=== PATIENT | male | born 1980 | race Caucasian/White ===

== ENCOUNTER 2022-06-04 09:52 | Emergency (ER) | payer SELFPAY ==
[2022-06-04 11:01] LABS: Hematocrit 46.5 % (39.6-49.0); Lymphocytes % 30.5 % (15.3-44.8); MPV 9.7 fL (7.6-11.3); RBC Red Blood Cell Count 5.34 M/uL (4.33-5.43)
[2022-06-04 11:18] LABS: Troponin High Sensitivity 7.1 pg/mL (<58.9)
--- NOTE | 2022-06-04 11:22 | RAD REPORT ---
EXAM DESCRIPTION: RAD - Chest Single View - 06/04/2022 11:15 am CLINICAL HISTORY: CHEST PAIN COMPARISON: No comparisons FINDINGS: Lines: None. Lungs: No evidence of edema or pneumonia. Pleural: No significant pleural effusions or pneumothorax. Cardiac: The heart size is within normal limits. Mediastinum: Within normal limits. Bones: No acute fractures. Other: None IMPRESSION: No acute cardiopulmonary disease.
[2022-06-04 11:26] LABS: Potassium 3.7 mmol/L (3.5-5.1)
--- NOTE | 2022-06-04 12:11 | RAD REPORT ---
EXAM DESCRIPTION: CT - Chest For Pe Angio - 06/04/2022 11:56 am CLINICAL HISTORY: left sided chest pain COMPARISON: Abdomen Pelvis W Contrast dated 06/04/2022 TECHNIQUE: Dynamically enhanced axial 3 mm thick images of the chest were obtained during administra tion of <100> mL Isovue 370 IV contrast. Coronal and oblique reconstruction images were generated and reviewed. Exam utilizes a protocol for optimal evaluation of pulmonary arterial tree. Maximum intensity projections 3D imaging was utilized All CT scans are performed using dose optimization technique as appropriate and may include automated exposure control or mA/KV adjustment according to patient size. FINDINGS: Chest Wall: No suspicious thyroid nodules or pathologic lymphadenopathy. Lungs: No acute abnormality. Mild paraseptal emphysema. Pleura: Trace left pleural effusion. Mediastinum/liza: No pathologic lymphadenopathy. Circumferential thickened distal esophagus likely re flecting esophagitis. Pulmonary arteries/Aorta: No filling defect identified. No aortic aneurysm. Heart: No significant pericardial effusion. Normal heart size. Upper abdomen: No acute abnormality. Bones: No acute abnormality. IMPRESSION: Negative for pulmonary embolism. Small nonspecific left pleural effusion. Distal esophag eal wall thickening suggesting esophagitis. Endoscopy could better evaluate if clinically indicated.
--- NOTE | 2022-06-04 12:12 | RAD REPORT ---
EXAM DESCRIPTION: CTAbdomen Pelvis W Contrast - 06/04/2022 12:00 pm CLINICAL HISTORY: left sided abdominal pain COMPARISON: No comparisons TECHNIQUE: CT of the abdomen and pelvis was performed. All CT scans are performed using dose optimization technique as appropriate and may include automated exposure control or mA/KV adjustment according to patient size. FINDINGS: Lower chest: Trace left pleural effusion. Circumferential thickened distal esophagus which may reflect reflux esophagitis. Liver: No acute abnormality or suspicious lesions. Biliary: No biliary ductal dilatation. Stomach: No significant focal abnormality. Duodenum: No significant focal abnormality. Pancreas: No significant abnormality. Spleen: No significant abnormality. Adrenal: No suspicious lesions. Kidney/ureter: No hydronephrosis. No renal calculi. Retroperitoneum: No retroperitoneal adenopathy. Vascular: No aneurysm. Atherosclerosis. Bowel: No significant focal abnormality. Normal appendix. Peritoneum: No ascites or free air. Bladder: Grossly unremarkable. Reproductive: No adnexal masses. Bones: No acute fracture. Other: n/a IMPRESSION: No acute intra-abdominal or pelvic finding. Trace left pleural effusion. Normal appendix .
--- NOTE | 2022-06-04 13:01 | EDPHYS ---
Physician Documentation [facility] Name: Hernan Colon Age: 41 yrs Sex: Male : 1980 Arrival Date: 06/04/2022 Time: 09:56 Bed 13 Private MD: EM Physician Nura Ocampo HPI: 06/04 10:15 This 41 yrs old Male presents to ER via Ambulatory with complaints of Shoulder Pain, jmm Breathing Difficulty. 10:15 This is a 41-year-old male with history of hypertension that presents emerged part with [facility] complaints of left-sided chest and flank pain pain approximately 4 days ago some shortness of breath. Denies fever, cough. Also complains of some swelling in his right lower leg that he attributes to an ankle sprain. Patient has mainly medial calf pain. Patient takes ibuprofen for relief.. Historical: - Allergies: 10:09 Amoxicillin; ld1 - PMHx: 10:09 Hypertensive disorder; ld1 - PSHx: 10:09 None; ld1 - Immunization history:: Adult Immunizations up to date, Client reports receiving the 2nd dose of the Covid vaccine. - Social history:: Smoking status: Patient reports the use of cigarette tobacco products, smokes one-half pack cigarettes per day, Patient/guardian denies using alcohol. ROS: 10:15 Constitutional: Negative for fever, chills, and weight loss. jmm 10:15 Cardiovascular: Positive for chest pain. 10:15 MS/extremity: Positive for pain, swelling. 10:15 All other systems are negative. Exam: 10:15 Constitutional: This is a well developed, well nourished patient who is awake, alert, jmm and in no acute distress. Head/Face: atraumatic. Eyes: EOMI, no conjunctival erythema appreciated ENT: Moist Mucus Membranes Neck: Trachea midline, Supple Chest/axilla: Normal chest wall appearance and motion. 10:15 Abdomen/GI: Non distended Back: Normal ROM Skin: General appearance color normal 10:15 Cardiovascular: Rate: normal, Rhythm: regular. 10:15 Respiratory: the patient does not display signs of respiratory distress, Respirations: normal, Breath sounds: are clear throughout. 10:15 Musculoskeletal/extremity: Mild swelling noted to the right gastroc, compartments are soft, full dorsalis pedis pulse, neurovascular intact. 10:15 Skin: Appearance: Color: normal in color. 10:15 Neuro: Orientation: is normal, Mentation: is normal, Memory: is normal. 10:15 Psych: Behavior/mood is pleasant, cooperative. Vital Signs: 10:09 BP 209 / 129; Pulse 84; Resp 18; Temp 98.5(O); Pulse Ox 97% on R/A; Weight 86.18 kg; ld1 Height 5 ft. 10 in. (177.80 cm); Pain 6/10; 10:30 BP 193 / 123; Pulse 77; Pulse Ox 96% ; ko1 13:15 BP 165 / 102; Pulse 75; Resp 20; Pulse Ox 98% ; kb3 10:09 Body Mass Index 27.26 (86.18 kg, 177.80 cm) ld1 MDM: 10:15 Patient medically screened. [facility] 12:58 Data reviewed: vital signs, nurses notes. Counseling: I had a detailed discussion with [facility] the patient and/or guardian regarding:. 13:00 Data reviewed: vital signs, nurses notes. Counseling: I had a detailed discussion with [facility] the patient and/or guardian regarding: the historical points, exam findings, and any diagnostic results supporting the discharge/admit diagnosis, lab results, radiology results, the need for outpatient follow up, to return to the emergency department if symptoms worsen or persist or if there are any questions or concerns that arise at home. 15:13 Refusal of service: The patient/guardian displays adequate decision making capability [facility] and despite a detailed discussion of alternatives, benefits, risks, and consequences refuses: Ultrasound of the right leg. 06/04 10:20 Order name: Basic Metabolic Panel; Complete Time: 11:28 [facility] 06/04 10:20 Order name: CBC with Diff; Complete Time: 11:07 [facility] 06/04 10:20 Order name: Troponin HS; Complete Time: 11:28 [facility] 06/04 10:20 Order name: XRAY Chest (1 view); Complete Time: 11:22 [facility] 06/04 10:20 Order name: D-Dimer; Complete Time: 11:22 [facility] 06/04 10:20 Order name: Lipase; Complete Time: 11:28 [facility] 06/04 10:20 Order name: EKG; Complete Time: 10:21 [facility] 06/04 10:20 Order name: Cardiac monitoring; Complete Time: 10:52 [facility] 06/04 10:20 Order name: EKG - Nurse/Tech; Complete Time: : [facility] 06/04 10:20 Order name: IV Saline Lock; Complete Time: [facility] 06/04 10:20 Order name: Labs collected and sent; Complete Time: : [facility] 06/04 10:20 Order name: O2 Per Protocol; Complete Time: : [facility] 06/04 11:29 Order name: CT Chest For PE Angio; Complete Time: 12:12 [facility] 06/04 11:29 Order name: CT Abd/Pelvis - IV Contrast Only; Complete Time: 12:13 [facility] 06/04 10:20 Order name: O2 Sat Monitoring; Complete Time: : [facility] Administered Medications: No medications were administered Disposition Summary: 06/04/22 13:01 Discharge Ordered Location: Home [facility] Condition: Stable [facility] Diagnosis - Pleural effusion, not elsewhere classified jm - Esophagitis, unspecified [facility] Followup: [facility] - With: Sampson Guerrero MD - When: 2 - 3 days - Reason: Recheck today's complaints, Continuance of care, Re-evaluation by your physician Followup: [facility] - With: Braxton Gallagher MD - When: 2 - 3 days - Reason: Recheck today's complaints, Continuance of care, Re-evaluation by your physician Discharge Instructions: - Discharge Summary Sheet [facility] - Esophagitis [facility] - Pleural Effusion [facility] Forms: - Medication Reconciliation Form [facility] - Thank You Letter [facility] - Antibiotic Education [facility] - Prescription Opioid Use [facility] Prescriptions: - Pepcid 20 mg Oral Tablet - take 1 tablet by ORAL route every 12 hours for 10 days; 20 tablet; Refills: 0, [facility] Product Selection Permitted - Carafate 1 gram Oral Tablet - take 1 tablet by ORAL route 4 times per day take on an empty stomach, beginning jm on waking and last dose at bedtime; 100 tablet; Refills: 0, Product Selection Permitted Signatures: Dispatcher [employer] Karl Leone PA PA jmm Dibbern, Lauren, RN RN ld1 Corrections: (The following items were deleted from the chart) 10:09 10:09 Allergies: Amoxapine; ld1 ld1
--- NOTE | 2022-06-04 13:01 | ER ---
Nurse's Notes [facility] Name: Hernan Colon Age: 41 yrs Sex: Male : 1980 Arrival Date: 06/04/2022 Time: 09:56 Bed 13 Private MD: Diagnosis: Pleural effusion, not elsewhere classified;Esophagitis, unspecified Presentation: 06/04 10:11 Chief complaint: Patient states: LUQ pain/rib pain X 4 days. Coronavirus screen: At ld1 this time, the client does not indicate any symptoms associated with coronavirus-19. Ebola Screen: No symptoms or risks identified at this time. Initial Sepsis Screen: Does the patient meet any 2 criteria? No. Patient's initial sepsis screen is negative. Does the patient have a suspected source of infection? No. Patient's initial sepsis screen is negative. Risk Assessment: Do you want to hurt yourself or someone else? Patient reports no desire to harm self or others. Onset of symptoms was June 04, 2022. 10:11 Method Of Arrival: Ambulatory ld1 10:11 Acuity: SHARAD 3 ld1 Triage Assessment: 10:09 General: Appears in no apparent distress. comfortable, Behavior is calm, cooperative, ld1 appropriate for age. Pain: Complains of pain in left upper quadrant Pain does not radiate. Pain currently is 8 out of 10 on a pain scale. Quality of pain is described as aching, throbbing. EENT: No signs and/or symptoms were reported regarding the EENT system. Neuro: Level of Consciousness is awake, alert, obeys commands, Oriented to person, place, time, situation. Cardiovascular: Capillary refill < 3 seconds Patient's skin is warm and dry. Respiratory: Reports Airway is patent Respiratory effort is even, unlabored, Onset: The symptoms/episode began/occurred suddenly, the patient has mild shortness of breath. GI: Abdomen is flat, non-distended. : No signs and/or symptoms were reported regarding the genitourinary system. Derm: No signs and/or symptoms reported regarding the dermatologic system. Musculoskeletal: No signs and/or symptoms reported regarding the musculoskeletal system. Historical: - Allergies: 10:09 Amoxicillin; ld1 - PMHx: 10:09 Hypertensive disorder; ld1 - PSHx: 10:09 None; ld1 - Immunization history:: Adult Immunizations up to date, Client reports receiving the 2nd dose of the Covid vaccine. - Social history:: Smoking status: Patient reports the use of cigarette tobacco products, smokes one-half pack cigarettes per day, Patient/guardian denies using alcohol. Screenin:30 Abuse screen: Denies threats or abuse. Denies injuries from another. Nutritional ko1 screening: No deficits noted. Tuberculosis screening: No symptoms or risk factors identified. Fall Risk None identified. Assessment: 10:30 General: Appears in no apparent distress. comfortable, Behavior is calm, cooperative, ko1 appropriate for age. Pain: Complains of pain in abdomen and left upper quadrant. Neuro: No deficits noted. Cardiovascular: Rhythm is sinus rhythm. Respiratory: Airway is patent Trachea midline Respiratory effort is even, unlabored, Respiratory pattern is regular, Breath sounds are clear bilaterally. in right upper lobe, left upper lobe, right middle lobe, left lower lobe, right lower lobe, left posterior upper lobe, right posterior upper lobe, left posterior lower lobe, right posterior middle lobe and right posterior lower lobe. GI: No deficits noted. : No deficits noted. EENT: No deficits noted. Derm: No deficits noted. Musculoskeletal: No deficits noted. Vital Signs: 10:09 BP 209 / 129; Pulse 84; Resp 18; Temp 98.5(O); Pulse Ox 97% on R/A; Weight 86.18 kg; ld1 Height 5 ft. 10 in. (177.80 cm); Pain 6/10; 10:30 BP 193 / 123; Pulse 77; Pulse Ox 96% ; ko1 13:15 BP 165 / 102; Pulse 75; Resp 20; Pulse Ox 98% ; kb3 10:09 Body Mass Index 27.26 (86.18 kg, 177.80 cm) ld1 ED Course: 09:56 Patient arrived in ED. rg4 09:56 Karl Ayers PA is PHCP. jm 09:56 Nura Ocampo MD is Attending Physician. jmm 10:09 Arm band placed on right wrist. ld1 10:11 Triage completed. ld1 10:17 Guerline Gray, SHARYN is Primary Nurse. ko1 10:30 Patient has correct armband on for positive identification. Bed in low position. Call ko1 light in reach. Side rails up X 1. Client placed on continuous cardiac and pulse oximetry monitoring. NIBP monitoring applied. quality assurance monitor body on. 10:30 No provider procedures requiring assistance completed. Inserted saline lock: 20 gauge ko1 in right antecubital area, using aseptic technique. Blood collected. 10:52 Lipase Sent. ko1 10:52 D-Dimer Sent. ko1 10:52 Basic Metabolic Panel Sent. ko1 10:52 CBC with Diff Sent. ko1 10:52 Troponin HS Sent. ko1 11:17 XRAY Chest (1 view) In Process Unspecified. EDMS 11:58 CT Chest For PE Angio In Process Unspecified. EDMS 12:02 CT Abd/Pelvis - IV Contrast Only In Process Unspecified. EDMS 13:00 Sampson Guerrero MD is Referral Physician. jm 13:01 Braxton Gallagher MD is Referral Physician. m 13:19 IV discontinued, intact, bleeding controlled, No redness/swelling at site. kb3 Administered Medications: No medications were administered Medication: 10:30 VIS not applicable for this client. ko1 Outcome: 13:01 Discharge ordered by MD. [facility] 13:19 Discharged to home ambulatory. kb3 13:19 Condition: stable 13:19 Discharge instructions given to patient, Instructed on discharge instructions, follow up and referral plans. medication usage, Demonstrated understanding of instructions, follow-up care, medications, Prescriptions given X 2. 13:20 Patient left the ED. kb3 Signatures: Dispatcher [employer] EDMS Karl Ayers PA PA jmm Garcia, Rubi rg4 Akua Pearson RN RN ld1 Yanet Flower, RN RN kb3 Guerline Gray, SHARYN RN ko1 Corrections: (The following items were deleted from the chart) 10:09 10:09 Allergies: Amoxapine; ld1 ld1
[2022-06-04 13:27] VITALS: TEMP 98.5
[2022-06-04 13:30] VITALS: BP 165/102; O2SAT 98
== END 2022-06-04 13:20 | disposition home or self-care (01) ==
LOC: ER 09:52
DX: J90 Pleural effusion, not elsewhere classified (principal); K20.90 Esophagitis, unspecified without bleeding; Z88.1 Allergy status to other antibiotic agents
CPT/HCPCS: 36415; 71045; 71275; 74177; 80048; 83690; 84484; 85025; 85379; 99284; Q9967